=== PATIENT | female | born 1975 | race Caucasian/White ===

== ENCOUNTER 2016-08-10 12:02 | Inpatient (IN) | payer BC ==
[~2016-08-10] VITALS: Ht 167.6 cm; Wt 75.7 kg
--- NOTE | 2016-08-10 06:40 | NUR ---
RECEIVED FROM ER VIA GFS IT. AWAKE, ALERT, AND ORIENTED X4. C/O LLQ PAIN 12/16. NO ACUTE DISTRESS NOTED. SKIN INTACT. KEEP COMFORTABLE ON BED.
--- NOTE | 2016-08-10 07:00 | NUR ---
BEDSIDE REPORT GIVEN TO CLARENCE EDUARDO. IN STABLE CONDITION. ALSO ENDORSED ABOUT PT. ADMISSION.
[2016-08-10 12:55] VITALS: BP 118/69
--- NOTE | 2016-08-10 13:08 | NUR ---
PATIENT PRESENTS TO ED DUE LEFT SIDED PELVIC PAIN WITH NAUSEA X1 WEEK. HX GERD. DENIES V/D; SKIN IS PINK/WARM/DRY; AAOX4 WITH EVEN AND STEADY GAIT; LUNGS CLEAR BL; HR EVEN AND REGULAR; PT DENIES ANY FEVER, CP, SOB, OR COUGH AT THIS TIME; PATIENT STATES PAIN OF 9/10 AT THIS TIME; PATIENT POSITIONED FOR COMFORT; HOB ELEVATED; BEDRAILS UP X2; BED DOWN. ER MD MADE AWARE OF PT STATUS.
--- NOTE | 2016-08-10 13:22 | NUR ---
RELAYED TO DR. ALFARO RESULT OF URINE DIPSTICK AND URINE PREG
[2016-08-10] MEDS ORDERED: MORPHINE SULFATE 4 MG/ML SYR IVP ONE ×2 (13:50→16:45)
[2016-08-10] MEDS ORDERED: NACL 0.9% 1,500 ML IV ONE (13:50)
[2016-08-10] MEDS ORDERED: ONDANSETRON 4 MG/2 ML VIAL IVP ONE ×2 (13:50→18:10)
--- NOTE | 2016-08-10 15:19 | NUR ---
PT WENT TO US VIA WHEELCHAIR AT THIS TIME, LEAH LERMA
--- NOTE | 2016-08-10 16:13 | NUR ---
PT BACK FROM CT AND US PT AAO, FAMILY AT BEDSIDE, SKIN WARM TO TOUCH RESP. EVEN AND UNLABORED.
--- NOTE | 2016-08-10 16:25 | NUR ---
IVF ONGOING, PT AAO, NO DISTRESS NOTED, PT CALM
[2016-08-10] MEDS ORDERED: PIPERACILLIN/TAZOBACTAM 3.375 GM in DEXTROSE 5% 50 ML IV ONE (16:45)
[2016-08-10] MEDS ORDERED: metroNIDAZOLE 500 MG/NS PREMIX 100 ML IV ONE (16:45)
[2016-08-10] MEDS ORDERED: PIPERACILLIN/TAZOBACTAM 3.375 GM VIAL IV ONE (16:51)
[2016-08-10] MEDS ORDERED: NACL 0.9% 1,000 ML IV SCH (18:15)
--- NOTE | 2016-08-10 18:21 | NUR ---
REPPORT GIVEN TO YENI Coelho
--- NOTE | 2016-08-10 18:33 | NUR ---
TRANSFER TO TELE VIA [facility] PT AAO, NO VOMITTING NOTED, GIRLFRIEND WITH THE PT, SKIN WARM TO TOUCH RESP. EVEN AND UNLABORED, IV INTACT.
--- NOTE | 2016-08-10 19:30 | NUR ---
RECEIVED REPORT FROM JORDAN LOW AT BEDSIDE. PT AAOX4. PT'S SKIN IS INTACT. PT STABLE. PT HAS IV TO LEFT AC G 20; ASYMPTOMATIC, PATENT AND INTACT. ORIENTED PT TO ROOM AND SURROUNDINGS AND USE OF CALL LIGHT. VISITOR AT BEDSIDE. SAFETY MEASURES IN PLACE, CALL LIGHT WITHIN REACH. WILL CONTINUE TO MONITOR PT.
[2016-08-10 20:00] VITALS: BP 121/73
--- NOTE | 2016-08-10 20:05 | NUR ---
APPLIED SCDS ON PT. CALL LIGHT WITHIN REACH.
--- NOTE | 2016-08-10 21:10 | NUR ---
PT COMPLAINING OF PAIN. NO PAIN MEDICATIONS ON EMAR. WILL CALL
--- NOTE | 2016-08-10 21:20 | NUR ---
TALKED TO DR. ABAD WHO IS COVERING FOR DR. FINNEGAN. ORDERS GIVEN FOR PAIN AND NAUSEA MEDICATIONS. WILL FOLLOW UP ON ORDERS.
[2016-08-10] MEDS: MORPHINE SULFATE 2 MG/ML SYR IVP PRN (22:00)
[2016-08-10] MEDS: ONDANSETRON 4 MG/2 ML VIAL IVP PRN (22:01)
[2016-08-10] MEDS: SACCHAROMYCES 250 MG CAP PO SCH (22:01)
[2016-08-10] MEDS: metroNIDAZOLE 500 MG/NS PREMIX 100 ML IV SCH (22:01)
--- NOTE | 2016-08-10 22:13 | NUR ---
PT TOLERATED 2100 MEDS WELL, ALSO PT MEDICATED FOR PAIN. VS STABLE, WILL CONTINUE TO MONITOR PT.
[2016-08-10] MEDS: PIPER/TAZO 3.375GM/D5W PREMIX 50 ML IV SCH (23:51)
[2016-08-11] VITALS: BP 113/75
[2016-08-11] MEDS ORDERED: PIPERACILLIN/TAZOBACTAM 3.375 GM in DEXTROSE 5% 50 ML IV SCH
--- NOTE | 2016-08-11 00:40 | NUR ---
PT SLEEPING, NO SIGNS OF DISTRESS NOTED. CALL LIGHT WITHIN REACH.
--- NOTE | 2016-08-11 03:05 | NUR ---
PT REQUESTED TO HAVE SCDS REMOVES TO USE THE RESTROOM. PT BACK IN BED NOW. SCDS BACK ON PT, CALL LIGHT WITHIN REACH.
--- NOTE | 2016-08-11 04:11 | NUR ---
PT COMPLAINING OF ABDOMINAL PAIN 01/15. VS 115/68, 02SAT 100%, HR 75. WILL MEDICATE ORDERED. WILL CONTINUE TO MONITOR PT.
[2016-08-11] MEDS: metroNIDAZOLE 500 MG/NS PREMIX 100 ML IV SCH ×3 (04:12→20:21)
[2016-08-11] MEDS: ONDANSETRON 4 MG/2 ML VIAL IVP PRN ×3 (04:13→17:49)
[2016-08-11] MEDS: MORPHINE SULFATE 2 MG/ML SYR IVP PRN (04:13)
--- NOTE | 2016-08-11 06:15 | NUR ---
PT COMPLAINING OF IV HURTING. IV DISCONTINUED WITH TIP INTACT. NEW IV STARTED ON LEFT FOREARM G 22; ASYMPTOMATIC, PATENT AND INTACT.
[2016-08-11] MEDS: PIPER/TAZO 3.375GM/D5W PREMIX 50 ML IV SCH ×4 (06:22→23:58)
--- NOTE | 2016-08-11 07:37 | NUR ---
ENDORSED PT IN STABLE CONDITION TO JORDAN MOODY FOR CONTINUITY OF CARE.
--- NOTE | 2016-08-11 07:38 | NUR ---
RECEIVED REPORT FROM CHARITY FUNDRAISER NURSE. PT IS AAOX4, DENIES PAIN/DISCOMFORT AT THIS TIME. IV IS PATENT AND FLOWING. SKIN IS WARM AND INTACT. PT IS ON 2L NC, VITALS STABLE. CALL LIGHT WITHIN REACH. WILL CONTINUE TO MONITOR
--- NOTE | 2016-08-11 07:40 | NUR ---
RECEIVED REPORT FROM JORDAN BARBOSA. WILL CONTINUE WITH CURRENT PLAN OF CARE. Addendum: 08/11/16 at 1753 by Abigail Forrest RN ENTERED INCORRECT TIME.
[2016-08-11] MEDS: NACL 0.9% 1,000 ML IV SCH ×3 (07:45→20:21)
[2016-08-11 08:00] VITALS: BP 94/43
--- NOTE | 2016-08-11 08:43 | NUR ---
PATIENT HAS BEEN SCREENED AND CATEGORIZED MODERATE NUTRITION RISK. PATIENT WILL BE SEEN WITHIN 3-5 DAYS OF ADMISSION. 08/13/16-08/15/[address]
[2016-08-11] MEDS: SACCHAROMYCES 250 MG CAP PO SCH ×2 (08:48→20:21)
[2016-08-11] MEDS: APAP/BUTAL/CAFF 325/50/40 MG 1 TAB PO PRN (08:48)
--- NOTE | 2016-08-11 08:55 | NUR ---
PT ORAL MEDS WELL.
[2016-08-11] MEDS ORDERED: OMEPRAZOLE20 M3 PO (09:49)
[2016-08-11] MEDS ORDERED: KETOROLAC 10 MG TAB PO PRN (11:00)
[2016-08-11] MEDS: KETOROLAC 15 MG/ML VIAL IVP PRN ×2 (11:30→20:29)
--- NOTE | 2016-08-11 11:30 | NUR ---
PT C/O PAIN. MEDICATED PRESCRIBED.
--- NOTE | 2016-08-11 11:41 | NUR ---
PT REFUSED FLU VACCINE, STS SHE WILL FOLLOW UP WITH PCP UPON D/C.
--- NOTE | 2016-08-11 11:43 | NUR ---
CM NOTE PER JET DYEING MACHINE TENDER ETIENNE EXT [id number], REVIEWS SHOULD ONLY GO TO [facility]. FAXED REVIEW TO [facility] FAX# [phone] PH# [phone] DAVEY EXT [phone]
--- NOTE | 2016-08-11 13:41 | NUR ---
ALL NEEDS MET AT THIS TIME. NO DISTRESS NOTED.
--- NOTE | 2016-08-11 15:41 | NUR ---
VITALS REMAIN STABLE. NO DISTRESS NOTED.
[2016-08-11 16:00] VITALS: BP 102/54
--- NOTE | 2016-08-11 17:39 | NUR ---
ENDORSED TO DRE Yan RN IN STABLE CONDITION.
--- NOTE | 2016-08-11 17:40 | NUR ---
RECEIVED REPORT FROM JORDAN BARBOSA. WILL CONTINUE WITH CURRENT PLAN OF CARE.
--- NOTE | 2016-08-11 17:52 | NUR ---
ADMINISTERED MEDS ORDERED. PT C/O NAUSEA. ADMINISTERED ZOFRAN ORDERED. WILL CONTINUE TO MONITOR.
--- NOTE | 2016-08-11 19:10 | NUR ---
ENDORSED CARE TO JORDAN BARBOSA. PT IN STABLE CONDITION.
--- NOTE | 2016-08-11 19:25 | NUR ---
RECEIVED REPORT FROM JORDAN MOODY AT BEDSIDE. PT AAOX4. PT'S SKIN IS INTACT. PT STABLE. PT HAS IV TO LEFT FOREARM G 22; ASYMPTOMATIC, PATENT AND INTACT. ORIENTED PT TO ROOM AND SURROUNDINGS AND USE OF CALL LIGHT. PT HAS SCDS ON. VISITOR AT BEDSIDE. SAFETY MEASURES IN PLACE, CALL LIGHT WITHIN REACH. WILL CONTINUE TO MONITOR PT.
--- NOTE | 2016-08-11 20:26 | NUR ---
PT COMPLAINING OF ABDOMINAL PAIN 12/16. WILL MEDICATE ORDERED. VS: BP 112/63, HR 74, 02 SAT 97%, R 20. WILL CONTINUE TO MONITOR PT.
--- NOTE | 2016-08-11 20:31 | NUR ---
PT TOLERATED 2100 MEDS WELL AND ALSO MEDICATED FOR PAIN. CALL LIGHT WITHIN REACH.
--- NOTE | 2016-08-11 22:15 | NUR ---
PT WATCHING A SHOW ON HER TABLET. PT STABLE, WILL CONTINUE TO MONITOR PT.
[2016-08-12] VITALS: BP 115/71
--- NOTE | 2016-08-12 00:02 | NUR ---
0000 ZOSYN INFUSING NOW. PT STABLE, CALL LIGHT WITHIN REACH.
--- NOTE | 2016-08-12 01:29 | NUR ---
PT SLEEPING AT THIS TIME, NO SIGNS OF DISTRESS NOTED. WILL CONTINUE TO MONITOR PT.
--- NOTE | 2016-08-12 03:24 | NUR ---
IV PUMP ALARMING. CHECKED IV AND FLUSHED IT. IV FLUIDS INFUSING WELL. CALL LIGHT WITHIN REACH.
[2016-08-12] MEDS: metroNIDAZOLE 500 MG/NS PREMIX 100 ML IV SCH ×2 (04:09→13:28)
--- NOTE | 2016-08-12 04:14 | NUR ---
0500 FLAGYL INFUSING NOW. PT STABLE, CALL LIGHT WITHIN REACH.
--- NOTE | 2016-08-12 05:20 | NUR ---
PT COMPLAINING OF A HEADACHE, WILL MEDICATE ORDERED.
[2016-08-12] MEDS: APAP/BUTAL/CAFF 325/50/40 MG 1 TAB PO PRN (05:21)
[2016-08-12] MEDS: PIPER/TAZO 3.375GM/D5W PREMIX 50 ML IV SCH ×2 (05:23→11:51)
--- NOTE | 2016-08-12 07:36 | NUR ---
ENDORSED PT IN STABLE CONDITION TO JORDAN ALVARADO FOR CONTINUITY OF CARE.
--- NOTE | 2016-08-12 07:40 | NUR ---
RECEIVED REPORT FROM THE BUS STARTER NURSE CLARENCE AT BEDSIDE. PATIENT IS AWAKE, ALERT, ORIENTEDX4. IV ON THE LEFT FOREARM, INTACT, AND PATENT. INITIAL ASSESSMENT DONE. SKIN INTACT. ON ROOM AIR NO S/S OF SOB OR DISTRESS. VITAL TAKEN AND WITHIN THE NORMAL LIMIT. SAFETY MEASURE CHECKED AND WILL CONTINUE TO MONITOR. CALL LIGHT WITHIN REACH.
[2016-08-12 08:00] VITALS: BP 98/60
[2016-08-12] MEDS: SACCHAROMYCES 250 MG CAP PO SCH (08:45)
--- NOTE | 2016-08-12 08:47 | NUR ---
DUE MEDS, GIVE, PATIENT TOLERATED WELL. CALL LIGHT WITHIN REACH.
[2016-08-12] MEDS ORDERED: POTASSIUM CHLORIDE 10 MEQ TABER PO SCH (10:50)
[2016-08-12] MEDS: NACL 0.9% 1,000 ML IV SCH (11:03)
--- NOTE | 2016-08-12 11:59 | NUR ---
ZOSYN STARTED INFUSING AND K-DUR GIVEN FOR LOW POTASSIUM OF 3.3. PATIENT TOLERATED WELL. FRIEND AT BEDSIDE. CALL LIGHT WITHIN REACH.
[2016-08-12] MEDS ORDERED: CIPRO500 MG PO (12:08)
[2016-08-12] MEDS ORDERED: FLAGYL250 MG PO (12:09)
[2016-08-12 14:45] VITALS: BP 101/61
--- NOTE | 2016-08-12 15:56 | NUR ---
EDUCATED PATIENT ABOUT NEW PRESCRIPTION, FOLLOW UP APPOINTMENT, AND DISCHARGED INSTRUCTION. PATIENT SIGNED ALL THE DISCHARGED PAPER AND GIVEN ALL THE DISCHARGED PAPER. PATIENT IS IN STABLE CONDITION. FAMILY AT BEDSIDE.
--- NOTE | 2016-08-12 16:00 | NUR ---
ASSISTED PATIENT TO THE LOBBY WITH FAMILY D/C TO HOME. PATIENT IN STABLE CONDITION.
== END 2016-08-12 16:00 | disposition home or self-care (01) | DRG 391 ==
LOC: MED 12:09 → MTU 17:57
PROVIDERS: ADMIT Family Medicine; ATTEND Family Medicine
DX: K57.30 Diverticulosis of large intestine without perforation or abscess without bleeding (principal); K85.90 Acute pancreatitis without necrosis or infection, unspecified; K57.32 Diverticulitis of large intestine without perforation or abscess without bleeding; K31.84 Gastroparesis; K21.9 Gastro-esophageal reflux disease without esophagitis; F12.90 Cannabis use, unspecified, uncomplicated; F13.90 Sedative, hypnotic, or anxiolytic use, unspecified, uncomplicated; R31.9 Hematuria, unspecified; E78.1 Pure hyperglyceridemia; E83.51 Hypocalcemia; K59.09 Other constipation; N85.8 Other specified noninflammatory disorders of uterus; Z90.49 Acquired absence of other specified parts of digestive tract; Z88.1 Allergy status to other antibiotic agents; Z88.8 Allergy status to other drugs, medicaments and biological substances